=== PATIENT | female | born 1955 | race Caucasian/White ===

== ENCOUNTER 2024-02-18 16:50 | Inpatient (IN) | payer OTHER, SELFPAY ==
[2024-02-18 11:10] VITALS: BP 94/57
[2024-02-18 11:55] LABS: ALT (SGPT) 24 U/L (0-35); AST (SGOT) 38 U/L (14-36); Alkaline Phosphatase 72 U/L (38-126); Blood Urea Nitrogen 49 mg/dl (7-17); Calcium 8.3 mg/dl (8.4-10.2); Carbon Dioxide 17 mmol/L (22-30); Chloride 101 mmol/L (98-107); Glucose 108 mg/dl (70-99); Potassium 3.7 mmol/L (3.5-5.1); Sodium 133 mmol/L (135-145); Total Bilirubin 0.7 mg/dl (0.2-1.3); Total Protein 6.6 g/dl (6.3-8.2); eGFR 22.45
[2024-02-18 11:57] LABS: Hematocrit 34.3 % (37.0-47.0); Hemoglobin 12.1 g/dL (12.0-16.0); Mean Corp Hgb Conc. 35.3 g/dL (33.0-37.0); Mean Corpuscular Hgb 33.4 pg (27.0-31.0); Mean Corpuscular Volume 94.8 fL (81.0-99.0); Mean Platelet Volume 9.1 fL (7.4-10.4); Platelet Count 212 10^3/uL (130-400); Red Blood Cell Count 3.62 10^6/uL (4.20-5.40); Red Cell Dist. Width 13.1 % (11.5-14.5); White Blood Cell Count 7.2 10^3/uL (4.8-10.8)
[2024-02-18 12:18] LABS: Absolute Neutrophils -Man Diff 3.8 10^3/uL (1.4-6.5); Band Neutrophils 20 % (0-3); Lymphocytes 34 % (20-51); Monocytes 13 % (2-9); Normal RBC Morphology Yes; Platelets Checked Yes; Segmented Neutrophils 33 % (42-75); Total Cells Counted 100
--- NOTE | 2024-02-18 12:56 | ED.GENMED ---
History of Present Illness
General
Chief Complaint: Abdominal Symptoms
Source: patient
Time Seen by Provider: 02/18/24 12:44
History of Present Illness
History of Present Illness:
68yoF with a remote history of pancreatic cancer s/p Whipple procedure 5 years ago and hypothyroidism presenting with her daughter for evaluation of diarrhea. Symptoms started 3 days ago. She reports green watery diarrhea about 10x daily. She called
and spoke with her PCP yesterday and she was empirically prescribed Cipro. She had 2 doses of antibiotics yesterday. She started to have nausea and vomiting yesterday. She is also having fevers up to 103 at home as well as decreased urine output. No
known sick contacts. Of note, patient returned from a trip to the [facility] 2 days before her symptoms started.
Phy Exam
General Physical Exam
General Presentation: well appearing and no apparent distress
General age: appears stated age
General Skin: warm and dry
General Habitus: normal
General Mental: alert
Cardiovascular Exam
Cardiovascular Exam: regular rate/rhythm and no edema
Pulmonary Exam
Pulmonary Exam: lungs clear, no respiratory distress, no crackles and no wheezing
Gastrointestinal Exam
Gastrointestinal Exam: non tender, soft and non distended
Skin Exam
Skin Exam: normal color and warm/dry
Psychiatric Exam
Psychiatric Exam: normal mood/affect
Course
Orders/Labs/Results
Orders:
Orders
02/18/24 11:20
CMP [Comprehensive Metabolic Panel] Urgent
Complete Blood Count/With Diff Urgent
Magnesium Urgent
Comment: ADD ON
Manual Differential Urgent
02/18/24 12:55
Add On- LAB Urgent
Tests Added?: magnesium
CT Abd/pel Without Iv Or Oral Urgent
Comment:
Reason For Exam: Diarrhea, ERICA
0.9% Sodium Chloride 1000 ml [Nss] 1,000 ml IV BOLUS
02/18/24 13:44
CDIFF [C difficile Antigen & Toxins] Urgent
[facility] Source: Feces/Stool
Specimen Description:
Date Specimen was Collected: 02/18/24
Time Specimen was Collected: 13:40
Stool Culture Urgent
[facility] Source: Feces/Stool
Specimen Description:
Date Specimen was Collected: 02/18/24
Time Specimen was Collected: 13:40
02/18/24 16:08
Admit/Transfer Patient As Directed
Co-Sign Provider:
Level of Care: Inpatient admission
Assign to:: Medical/Surgical
Physician / Group: Abril
Diagnosis: Acute gastroenteritis/metabolic acidosis
Reason for Hospitalization: Acute gastroenteritis/metabolic acidosis
Expected length of stay greater than two midnights?: Yes
ELOS- Estimated Length of Stay in days: 2
I certify the patient meets the requirements for IP care: Yes
PRN Pain Medication Management As Directed
May give lesser potent ordered pain med per pt: Yes
preference::
Protocol:: Medication orders for pain may be administered in a
manner that supports deferring to patient preference
when the pt is:
- Requesting an ordered lesser potent pain medication.
Least to most potent pain medications are defined
as: acetaminophen < NSAID < tramadol < opioids
(morphine, oxycodone, hydromorphone).
- Requesting a lesser dose of the same medication IF
ORDERED.
- Requesting a less intrusive route of administration
if both routes are prescribed by the provider (PO <
IV).
02/18/24 16:10
Code Status As Directed
Resuscitation Status: Full Code
Abnormal Lab Results
02/18/24
11:20
RBC 3.62 L 10^6/uL
(4.20-5.40)
Hct 34.3 L %
(37.0-47.0)
MCH 33.4 H pg
(27.0-31.0)
Segmented Neutrophils 33 L %
(42-75)
Band Neutrophils 20 H %
(0-3)
Monocytes (Manual) 13 H %
(2-9)
Sodium 133 L mmol/L
(135-145)
Carbon Dioxide 17 L mmol/L
(22-30)
BUN 49 H mg/dl
(7-17)
Creatinine 2.3 H mg/dL
(0.6-1.0)
Glucose 108 H mg/dl
(70-99)
Calcium 8.3 L mg/dl
(8.4-10.2)
AST 38 H U/L
(14-36)
02/18/24 11:20
02/18/24 11:20
Vital Signs
Initial and Last Documented VS:
Initial Vital Signs
Temp Pulse Resp BP Pulse Ox
98.0 F 72 18 94/57 98
02/18/24 11:10 02/18/24 11:10 02/18/24 11:10 02/18/24 11:10 02/18/24 11:10
Last Documented Vital Signs
Temp Pulse Resp BP Pulse Ox
98.0 F 68 16 98/60 100
02/18/24 11:10 02/18/24 15:49 02/18/24 15:49 02/18/24 15:49 02/18/24 15:49
MDM/Problems Addressed
Differential Diagnosis Includes:
68yoF here with diarrhea x 3 days. Also having fevers up to 103. No abdominal pain. Recent travel to [place] She is afebrile and hemodynamically stable. Patient is well-appearing in no acute distress. Abdominal exam is benign. Differential diagnosis
includes but is not limited to: Traveler's diarrhea, gastroenteritis, diverticulitis, dehydration, electrolyte abnormality, ERICA
Initial ED plan: Labs obtained in triage. White count is normal although there is a bandemia of 20%. Creatinine 2.3, unclear baseline although patient denies any history of kidney disease. Bicarb is 17, likely secondary to her underlying
diarrhea. Will add stool studies and CT abdomen. IV fluid bolus.
*Critical Care Note
Total Time (30-74mins, 75-104mins- exclusive of procedures): Not Applicable
Update Note
Update Note:
CT abdomen is negative for acute findings. C. difficile testing negative. Stool culture is pending. Patient was admitted for further evaluation and management.
ED Attending Note
-
Portions of this chart may have been created with voice recognition software.� Occasional wrong word or��sound alike� substitutions may have occurred due to the inherent limitations of voice recognition software.
Discharge Plan
Departure
Patient Disposition: Admit
Date of Disposition: 02/18/24
Time of Disposition: 15:20
Presentation/result/management discussed w/ accepting MD/DO: Hospitalist
Discharge Problem:
Acute kidney injury, Acute diarrhea
Interventions
Interventions:
*Risk Screen - Suicide Last Done: 02/18/24 11:10
*General Assessment Last Done: 02/18/24 11:10
*Neglect/Abuse Screening Last Done: 02/18/24 11:10
ED- Fall Risk Assessment Last Done: 02/18/24 14:30
*ED COVID-19 Vaccine History Last Done: 02/18/24 11:10
WX-Hjtybq-Rsmqswnhpz Assessment Last Done: 02/18/24 14:30
[2024-02-18] MEDS: NSS 1000 IV ×2 (13:02→18:24)
[2024-02-18 13:05] VITALS: BP 96/58
[2024-02-18 13:42] LABS: Magnesium 2.2 mg/dl (1.6-2.3)
[2024-02-18 15:49] VITALS: BP 98/60
--- NOTE | 2024-02-18 16:13 | HPS.HSE ---
Family Physician
-
Family Physician: Marla Reynoso DO
Chief Complaint
-
Fever and diarrhea
History of Present Illness
Patient is a 68 years old female who recently came from [facility] presented with 3 days since onset of fever, persistent diarrhea, poor oral intake. Patient was initiated on ciprofloxacin day prior to admission and took 2 doses with no
improvement. With concern for significant dehydration, fever and persistent diarrhea, patient presents to the emergency room for further evaluation.
Medical History
Past Medical History
Past Medical History: Reports Hypothyroidism and Other (Pancreatic carcinoma status post Whipple procedure 5 years ago.)
Past Surgical History: Reports Other (Whipple procedure/cholecystectomy)
Social History
Tobacco: Non-smoker
Alcohol: None
Living: With Family
Employment: Retired
Family History
Family History: Not pertinent
Allergies / Home Medications
Allergies reflects when Allergies were last updated in [facility].
Home Medications with original date entered in [facility]
Allergy/Medication List:
Allergies
Allergy/AdvReac Type Severity Reaction Status Date / Time
No Known Allergies Allergy Verified 02/18/24 11:10
Home Medications
acetaminophen 325 mg tablet (Tylenol) 650 mg PO Q4HPRN PRN mild pain 02/18/24
ciprofloxacin HCl 250 mg tablet 250 mg PO BID Infection 02/18/24
dicyclomine 10 mg capsule 10 mg PO TIDPRN PRN abdominal spasms 02/18/24
famotidine 40 mg tablet (Pepcid) 40 mg PO HS Gastrointestinal Issue 02/18/24
levothyroxine 100 mcg tablet (Synthroid) 100 mcg PO DAILY Thyroid 02/18/24
crimsx-ynnblhqk-kpkgioy 10,000-32,000-42,000 unit capsule,delayed rel (Zenpep) 1 cap PO AC Gastrointestinal Issue 02/18/24
loperamide 2 mg tablet 2 mg PO TIDPRN PRN diarrhea 02/18/24
Review of Systems
-
A 12 point ROS was completed and negative except as noted: Yes
Abdomen/GI: Reports See HPI
Physical Exam
Vital Signs
Vital Signs
Temp Pulse Resp BP Pulse Ox
98.0 F 68 16 98/60 100
02/18/24 11:10 02/18/24 15:49 02/18/24 15:49 02/18/24 15:49 02/18/24 15:49
Physical Exam
General: Well Developed, Well Nourished and No Apparent Distress
HEENT: NormoCephalic, Moist mucous membranes and Atraumatic
Respiratory: Clear
Cardiac: S1/S2 and Regular Rhythm; No Murmur or Rub
GI: Soft, Non Tender, Non Distended and Normal Bowel Sounds; No Organomegaly
Rectal: Deferred by Provider
Musculoskeletal: No Clubbing, No Cyanosis and No Edema
Skin: No Rash
Neuro: Awake, Alert, Oriented, AO x 3 and Nonfocal/grossly intact
Laboratory Results
-
02/18/24 11:20
02/18/24 11:20
Laboratory Results
Total Bilirubin 0.7 mg/dl (0.2-1.3) 02/18/24 11:20
AST 38 U/L (14-36) H 02/18/24 11:20
ALT 24 U/L (0-35) 02/18/24 11:20
Alkaline Phosphatase 72 U/L (38-126) 02/18/24 11:20
Impression/Plan
-
IMPRESSION:
Acute gastroenteritis.
� Persistent diarrhea
Bandemia
Metabolic acidosis.
ERICA? CKD.
Status post Whipple procedure.
Pancreatic insufficiency.
Hypothyroidism.
PLAN:
Patient presents with persistent diarrhea, watery, denies hematochezia. Reported fever at home up to 103.
Hemodynamically stable upon presentation, nontoxic-appearing
CT scan of the abdomen pelvis without contrast, limited study with no acute abnormalities (status post Whipple/cholecystectomy)
Metabolic acidosis
? ERICA versus CKD (patient reports follow-up with nephrology for unknown reasons, could not recall baseline creatinine
Stool cultures
Stool for C. difficile
IV ciprofloxacin.
Check baseline ECG for QTc.
IV hydration with isotonic solution.
Follow-up CBC/BMP.
Clear liquid diet
Pancreatic enzymes
Full code
DVT prophylaxis mechanical.
[2024-02-18 17:30] VITALS: BP 110/63
[2024-02-18 17:47] VITALS: BMI 21.5
[2024-02-18] MEDS: CIPRO 400 MG 200 IV (18:24)
[2024-02-18] MEDS: ZENPEP DELAYED RELEASE CAPSULE 1 CAPSULE PO (18:41)
[2024-02-18] MEDS: PEPCID 20 MG PO (20:51)
[2024-02-18 23:25] VITALS: BP 104/61
[2024-02-19] MEDS: TYLENOL 650 MG PO (04:22)
[2024-02-19] MEDS: MYLICON 80 MG PO (04:22)
[2024-02-19] MEDS: NSS 1000 IV ×2 (04:23→15:43)
[2024-02-19] MEDS: CIPRO 400 MG 200 IV ×2 (05:42→18:32)
[2024-02-19] MEDS: SYNTHROID 100 MCG PO (05:43)
[2024-02-19 06:23] LABS: Hematocrit 28.3 % (37.0-47.0); Hemoglobin 9.9 g/dL (12.0-16.0); Mean Corpuscular Hgb 32.9 pg (27.0-31.0); Mean Platelet Volume 9.3 fL (7.4-10.4); Platelet Count 199 10^3/uL (130-400); Red Blood Cell Count 3.01 10^6/uL (4.20-5.40); White Blood Cell Count 6.4 10^3/uL (4.8-10.8)
[2024-02-19 06:43] LABS: ALT (SGPT) 17 U/L (0-35); AST (SGOT) 31 U/L (14-36); Albumin 2.9 g/dl (3.5-5.0); Alkaline Phosphatase 54 U/L (38-126); Blood Urea Nitrogen 37 mg/dl (7-17); Calcium 7.9 mg/dl (8.4-10.2); Carbon Dioxide 16 mmol/L (22-30); Chloride 109 mmol/L (98-107); Direct Bilirubin 0.3 mg/dl (0.0-0.4); Estimated Creatinine Clearance 32 ml/min; Glucose 93 mg/dl (70-99); Potassium 3.5 mmol/L (3.5-5.1); Sodium 133 mmol/L (135-145); Total Bilirubin 0.5 mg/dl (0.2-1.3); Total Protein 5.4 g/dl (6.3-8.2); eGFR 37.49
[2024-02-19] MEDS: ZENPEP DELAYED RELEASE CAPSULE 1 CAPSULE PO ×3 (07:37→17:22)
[2024-02-19 07:38] VITALS: BP 81/56
[2024-02-19 08:30] LABS: Absolute Neutrophils -Man Diff 4.2 10^3/uL (1.4-6.5); Band Neutrophils 15 % (0-3); Lymphocytes 21 % (20-51); Monocytes 12 % (2-9); Segmented Neutrophils 51 % (42-75)
[2024-02-19 08:31] LABS: Normal RBC Morphology Yes; Platelets Checked YES
[2024-02-19 08:32] LABS: Total Cells Counted 100
[2024-02-19 12:49] LABS: Iron 25 ug/dl (37-170)
[2024-02-19 12:58] LABS: Percent Saturation 14 % (20-50); Total Iron Binding Capacity 171 ug/dl (265-497)
[2024-02-19 15:30] VITALS: BP 99/60
--- NOTE | 2024-02-19 15:49 | CM ---
CM met with pt at bedside
Pt lives in a multistory home with her daughter, son-in-law and grandchildren
Pt reports 3 steps to enter, 16 steps to bed/bath rooms
Independent, driving
DME - none
SNF/HH - no past hx
Has ride home at discharge
PCP - Dr Marla Sebastian
Pharm - [facility]
CM will follow for d/c needs
Plan - anticipate home no needs when medically stable
--- NOTE | 2024-02-19 17:12 | W.PN.HOSP.TC ---
Today's Communication/Plan
-
Advance diet
Wean off IV fluids.
Follow stool cultures
Continue antibiotics
Assessment / Plan
Assessment / Plan
IMPRESSION:
Acute gastroenteritis.
� Persistent diarrhea
Bandemia
Metabolic acidosis.
ERICA? CKD.
Status post Whipple procedure.
Pancreatic insufficiency.
Hypothyroidism.
PLAN:
Acute gastroenteritis
CT scan without contrast with no significant abnormalities, limited study.
No evidence for sepsis.
C. difficile negative.
Stool cultures pending.
Stool positive for WBC.
Clinically improving being afebrile with relatively benign abdominal examination.
Slowing down diarrhea.
Continue Cipro (baseline ECG with normal QTc)
Follow stool cultures.
Advance diet to low residual.
Acute kidney injury? If CKD unknown baseline
Creatinine improved 2.3�1.5 with hydration. Follow BMP
Anemia of chronic disease.
Reports no hematochezia upon admission
Noted drop of hemoglobin from 12-9.9 secondary to dilution.
Check iron studies.
Pancreatic carcinoma status post Whipple procedure.
Pancreatic insufficiency
Continue pancreatic enzymes.
Full code
DVT prophylaxis mechanical.
Anticipated Discharge: 24 - 48 hours
Subjective/Interval History
-
Date of Service: February 19, 2024
Objective Data
-
Labs:
Laboratory Results
02/19/24
05:28
WBC 6.4
Hgb 9.9 L
Hct 28.3 L
Plt Count 199
Sodium 133 L
Potassium 3.5
Chloride 109 H
Carbon Dioxide 16 L
BUN 37 H
Creatinine 1.5 H
Glucose 93
Calcium 7.9 L
Total Bilirubin 0.5
AST 31
ALT 17
Alkaline Phosphatase 54
Vital Signs:
Vital Signs
Temp Pulse Resp BP Pulse Ox
98 F 61 16 99/60 99
02/19/24 15:30 02/19/24 15:30 02/19/24 15:30 02/19/24 15:30 02/19/24 15:30
I&O
02/18/24 02/19/24 02/20/24
06:59 06:59 06:59
Intake Total 1580 / 1580
Balance 1580 / 1580
Physical Exam
-
General: Well Developed and No Apparent Distress
HEENT: Normocephalic, Atraumatic and Moist Mucous Membranes
Respiratory: Clear to Auscultation
Cardiac: Regular Rhythm and S1/S2; Negative Murmur, Rub or Gallop
GI: Soft, Nontender, Nondistended and Normal Bowel Sounds; Negative Organomegaly
Rectal: Deferred by Provider
Musculoskeletal: No Clubbing, No Cyanosis and No Edema
Skin: Negative Rash
Neuro: Nonfocal/Grossly Intact
[2024-02-19] MEDS: PEPCID 20 MG PO (21:21)
[2024-02-19 23:45] VITALS: BP 102/59
[2024-02-20] MEDS: CIPRO 400 MG 200 IV (05:28)
[2024-02-20] MEDS: NSS 1000 IV (05:29)
[2024-02-20] MEDS: SYNTHROID 100 MCG PO (05:29)
[2024-02-20 07:37] VITALS: BP 108/71
[2024-02-20 07:43] LABS: Hematocrit 28.5 % (37.0-47.0); Hemoglobin 10.2 g/dL (12.0-16.0); Mean Corp Hgb Conc. 35.8 g/dL (33.0-37.0); Mean Corpuscular Hgb 33.2 pg (27.0-31.0); Mean Corpuscular Volume 92.8 fL (81.0-99.0); Mean Platelet Volume 9.2 fL (7.4-10.4); Platelet Count 207 10^3/uL (130-400); Red Blood Cell Count 3.07 10^6/uL (4.20-5.40); Red Cell Dist. Width 13.2 % (11.5-14.5); White Blood Cell Count 6.7 10^3/uL (4.8-10.8)
[2024-02-20 07:48] LABS: Blood Urea Nitrogen 20 mg/dl (7-17); Calcium 8.1 mg/dl (8.4-10.2); Carbon Dioxide 17 mmol/L (22-30); Chloride 109 mmol/L (98-107); Estimated Creatinine Clearance 34 ml/min; Glucose 94 mg/dl (70-99); Potassium 3.2 mmol/L (3.5-5.1); Sodium 135 mmol/L (135-145); eGFR 40.73
--- NOTE | 2024-02-20 07:53 | PN.CDI ---
CDI
- -
CDI:
Physician Documentation Request
Admit Date: 02/18/24 16:50
Dear Doctor Abril,
Please review the following and provide your response in the progress notes.
Clinical Indicators:
Laboratory Tests
02/18/24 02/19/24 02/20/24
11:20 05:28 06:33
Sodium 133 L 133 L 135
Based on the above and your clinical assessment, please clarify in the progress notes, the appropriate diagnosis, if significant, that supports the above abnormalities and additional evaluation, monitoring and/or treatment rendered:
Hyponatremia
Abnormal lab value, clinically insignificant
Other(please specify)
Use of terms such as suspected, likely, concern for, or probable (associated with a specific diagnosis that is being evaluated, monitored, or treated as if it exists) are acceptable and can be coded in the inpatient setting, when documented at the
time of discharge.
Thank you,
Faviola Fuller RN BSN CCDS
CDI Specialist
please contact via tiger text
Please use your independent medical judgment in providing your response.
--- NOTE | 2024-02-20 08:01 | PN.CDI ---
CDI
- -
CDI:
Physician Documentation Request
Admit Date: 02/18/24 16:50
Dear Doctor Abril,
Please review the following and provide your response in the progress notes.
Documentation states the patient was admitted with Acute Gastroenteritis.
Clinical Indicators:
PN, 02/18
#Acute gastroenteritis
#Continue Cipro (baseline ECG with normal QTc)
If possible, please provide additional specificity regarding the type of colitis:
Infectious Acute Gastroenteritis
Non-infectious Acute Gastroenteritis
Other - please specify
Use of terms such as suspected, likely, concern for, or probable (associated with a specific diagnosis that is being evaluated, monitored, or treated as if it exists) are acceptable and can be coded in the inpatient setting, when documented at the
time of discharge.
Thank you,
Faviola Fuller RN BSN CCDS
CDI Specialist
please contact via tiger text
Please use your independent medical judgment in providing your response.
[2024-02-20] MEDS: ZENPEP DELAYED RELEASE CAPSULE 1 CAPSULE PO ×2 (08:44→11:42)
[2024-02-20 09:57] LABS: % Basophils 0.6 % (0-2); % Eosinophils 0.1 % (0-6); % Immature Granulocytes 1.3 % (0-0.5); % Lymphocytes 19.8 % (20.5-51.1); % Monocytes 14.9 % (1.7-9.3); % Neutrophils 63.3 % (42.2-75.2); Absolute Immature Granulocytes 0.1 10^3/uL (0-0.05); Absolute Lymphocytes 1.3 10^3/uL (1.2-3.4); Absolute Neutrophils 4.2 10^3/uL (1.4-6.5); Nucleated Red Blood Cells % 0 %
[2024-02-20] MEDS: KCL 40 MEQ PO (11:42)
--- NOTE | 2024-02-20 13:05 | W.DS.TRANS ---
DC Summary - [employer]
-
Discharge Instructions:
Discharge Diagnosis/Procedures Acute gastroenteritis
Diet Regular
Instructions:
Stand-Alone Forms:
Changes to Home Medications: No
Discharge Medications:
DC Medications w/original date entered in [facility]
acetaminophen 325 mg tablet (Tylenol) 650 mg PO Q4HPRN PRN mild pain 02/18/24
ciprofloxacin HCl 250 mg tablet 250 mg PO BID Infection 02/18/24
famotidine 40 mg tablet (Pepcid) 40 mg PO HS Gastrointestinal Issue 02/18/24
levothyroxine 100 mcg tablet (Synthroid) 100 mcg PO DAILY Thyroid 02/18/24
pcmtmb-ithgkdol-sgqdmwx 10,000-32,000-42,000 unit capsule,delayed rel (Zenpep) 1 cap PO AC Gastrointestinal Issue 02/18/24
Home Medication Changes
Pending Results: No
[2024-02-20 13:18] VITALS: BP 134/62
[2024-02-20 13:49] VITALS: BP 114/69
--- NOTE | 2024-02-20 14:03 | CM ---
Case management following for discharge planning
Pt for discharge today
Daughter will transport home
Discussed IMM
Plan - home no needs
== END 2024-02-20 14:31 | disposition home or self-care (01) | DRG 683 ==
LOC: 3 WEST ACU 16:50
PROVIDERS: Emergency Medicine; ADMITTING PHYSICIAN Internal Medicine; EMERGENCY PHYSICIAN Emergency Medicine; FAMILY PHYSICIAN Family Medicine
DX: N17.9 Acute kidney failure, unspecified (principal); A09 Infectious gastroenteritis and colitis, unspecified; E87.20 Acidosis, unspecified; E87.1 Hypo-osmolality and hyponatremia; E86.0 Dehydration; E87.6 Hypokalemia; E03.9 Hypothyroidism, unspecified; K86.89 Other specified diseases of pancreas; D63.8 Anemia in other chronic diseases classified elsewhere; Z79.890 Hormone replacement therapy; Z85.07 Personal history of malignant neoplasm of pancreas; Z90.411 Acquired partial absence of pancreas
CPT/HCPCS: 74176; 80048; 80053; 82248; 82728; 83540; 83550; 83735; 85025; 87045; 87046; 87077; 87324; 87427; 87449; 89055; 93005; 96360; 99284